=== PATIENT | male | born 1955 ===

== ENCOUNTER 2021-05-19 16:28 | Emergency (ER) | payer OTHER ==
[~2021-05-19] VITALS: Ht 170.2 cm; Wt 102.5 kg
[2021-05-19] MEDS ORDERED: CHILDREN'S ASPI81 MG (18:32)
[2021-05-19] MEDS ORDERED: ACID REDUCER20 M1 PO (18:32)
[2021-05-19] MEDS ORDERED: FORTAMET500 MG (18:32)
[2021-05-19] MEDS ORDERED: LOSARTAN POTASS25 MG (18:33)
[2021-05-19] MEDS ORDERED: PEPCID AC20 MG PO (18:33)
[2021-05-19] MEDS ORDERED: SIMVASTATIN5 MG PO (18:33)
== END 2021-05-20 | disposition home or self-care (01) ==
LOC: ER 16:28
DX: K62.5 Hemorrhage of anus and rectum (principal); D64.9 Anemia, unspecified